=== PATIENT | female | born 1995 | race Two or more races ===

== ENCOUNTER 2019-06-06 06:47 | Day surgery (SDC) | payer MEDICAID ==
[~2019-06-06 06:47] MED LIST: Bupivacaine 0.5%/EPINEPHrine 1:200,000 50 ML MDV ONE
[2019-06-06] MEDS ORDERED: fentaNYL 250 MCG/5 ML SDV ONE (07:24)
[2019-06-06] MEDS ORDERED: Dexamethasone 4 MG/ML SDV ONE (07:25)
[2019-06-06] MEDS ORDERED: Succinylcholine 200 MG/10 ML MDV ONE (07:25)
[2019-06-06] MEDS ORDERED: Ondansetron 4 MG/2 ML SDV ONE (07:25)
[2019-06-06] MEDS ORDERED: Rocuronium 50 MG/5 ML Vial ONE (07:25)
[2019-06-06] MEDS ORDERED: Glycopyrrolate 0.2 MG/ML 5 ML MDV ONE (07:25)
[2019-06-06] MEDS ORDERED: Neostigmine Methylsulfate 1 MG/ML 5 ML Syringe ONE (07:25)
[2019-06-06] MEDS ORDERED: Propofol 200 MG/20 ML SDV ONE (07:25)
[2019-06-06] MEDS: Acetaminophen 500 MG Tab PO ONE ×2 (07:41→07:46)
[2019-06-06] MEDS: Dextrose 5%-Lactated Ringers 1,000 ML IV SCH ×3 (07:41→20:16)
[2019-06-06] MEDS ORDERED: cefOXitin 2 GM in Sodium Chloride 0.9% 50 ML IV ONE (08:15)
[2019-06-06] MEDS ORDERED: Ketamine 500 MG/5 ML MDV IV SCH (08:30)
[2019-06-06] MEDS ORDERED: Ondansetron 4 MG/2 ML SDV IVPUSH PRN (10:37)
[2019-06-06] MEDS ORDERED: HYDROmorphone 0.5 MG/0.5 ML Syringe IVPUSH PRN (10:38)
[2019-06-06] MEDS ORDERED: HYDROmorphone 1 MG/ML Syringe IV PRN (10:38)
[2019-06-06] MEDS ORDERED: Albuterol/Ipratropium 3.0-0.5 MG/3 ML Neb Soln INH PRN (10:38)
[2019-06-06] MEDS: Acetaminophen/HYDROcodone 325-5 MG Tab PO PRN ×4 (11:21→22:27)
[2019-06-06] MEDS ORDERED: Pantoprazole 40 MG Vial IV SCH (11:30)
[2019-06-06] MEDS ORDERED: Enoxaparin 40 MG/0.4 ML Syringe SUBCUT SCH (11:30)
[2019-06-06] MEDS: cefOXitin 2 GM in Sodium Chloride 0.9% 50 ML IV SCH ×2 (14:16→20:17)
[2019-06-06] MEDS: Fluticasone Propionate Nasal Spray 16 GM Bottle NASBOTH SCH (20:05)
[2019-06-06] MEDS ORDERED: Montelukast 10 MG Tab PO SCH (21:00)
[2019-06-07] MEDS: Acetaminophen/HYDROcodone 325-5 MG Tab PO PRN ×2 (02:56→08:09)
[2019-06-07] MEDS: Fluticasone Propionate Nasal Spray 16 GM Bottle NASBOTH SCH (08:10)
--- NOTE | 2019-06-07 09:40 | DISCH ---
ADMISSION DIAGNOSES: Chronic cholecystitis and cholelithiasis. DISCHARGE DIAGNOSES: Laparoscopic cholecystectomy, repair of umbilical hernia for chronic cholecystitis and cholelithiasis and umbilical hernia. HISTORY: Chanda Uribe is a 24-year-old female with right upper quadrant abdominal pain. After preoperative evaluation and discussion of possible risks and possible complications, she wished to proceed with surgical procedure. HOSPITAL COURSE: Chanda had her surgery on 06/06/2019. She had no operative complications and was able to be discharged on 06/07/2019. PHYSICAL EXAMINATION: GENERAL: Chanda is a 24-year-old female, alert and orientated. VITAL SIGNS: Height 5 feet 6.5 inches, weight is 321 pounds, BMI is 51. TPR 96.7, 66, 20, blood pressure 113/67. HEENT: Negative. NECK: Supple. HEART: Regular rate and rhythm. LUNGS: Clear. ABDOMEN: Dressings dry and intact. SANTO drain has been draining a light pink serosanguineous drainage and abdominal binder has been on. EXTREMITIES: Without peripheral edema. DISPOSITION: Discharged to home. CONDITION: Stable and improving. FOLLOWUP: Followup appointment with Leonarda Shepard PA-C, at [facility] on 06/13/2019 at 10 a.m. HOME MEDICATIONS: [place] 5/325 mg 1 tablet every 6 hours p.r.n. pain, #28. She is to resume home medication of: 1. Bentyl 20 mg oral before meals and bedtime p.r.n. 2. Vitamin D2 50,000 International Units every 7 days. 3. Zofran 4 mg every 4 hours p.r.n. nausea. DIET: Usual diet as tolerated. Drink 8 to 10 glasses of water. ACTIVITY: No lifting greater than 10 pounds for 2 weeks. Walk 6 times daily inside your home. Wear abdominal binder for 2 weeks and then as tolerated. Keep operative site clean and dry. DISCHARGE INSTRUCTIONS: Notify provider if any fever, increased pain, nausea, vomiting, and use incentive spirometer 10 times every hour while awake.
[2019-06-07] MEDS ORDERED: FLU Vacc QS2019-20(6MOS+)/PF 60 MCG/0.5 ML SYRINGE IM ONE (10:00)
--- NOTE | 2019-06-12 15:23 | OR ---
DATE OF PROCEDURE: 06/06/2019 SURGEON: William Melendez MD PREOPERATIVE DIAGNOSES: Chronic cholecystitis and cholelithiasis. POSTOPERATIVE DIAGNOSES: 1. Chronic cholecystitis and cholelithiasis. 2. Incarcerated umbilical hernia. OPERATIVE PROCEDURES: Diagnostic laparoscopy with: 1. Cholecystectomy (44524). 2. Repair of incarcerated incisional hernia (70604). ANESTHESIA: General. SECURITY DELIVERY SPECIALIST: Leonarda Shepard PA-C. INDICATIONS FOR PROCEDURE: This is a 24-year-old female presenting with episodes of right upper quadrant pain radiating to the back. She was recently seen in the [facility] Emergency Room, where an ultrasound showed cholelithiasis. The patient reports that she had discomfort on pressure on the gallbladder during the exam. Given this, she is to undergo a cholecystectomy. Potential risks of the procedure including bleeding, infection, injury to the viscera such as common bile duct, possibility of stones migrating into the common bile duct resulting in need for additional procedures for correction, and possible incomplete relief of symptoms were all reviewed, and the patient wishes to proceed. DETAILS OF PROCEDURE: The patient was taken to the operating room and placed in a supine position. After general endotracheal anesthesia was induced, the abdomen was then prepped and draped. A transverse subumbilical incision was made, and the patient was noted to have a small umbilical hernia present. Veress needle was inserted through the hernia site, and the peritoneal cavity inflated to 15 mmHg pressure with CO2. The 12 mm trocar was then placed through the hernia site, which appeared to reduce the incarcerated preperitoneal fat within it. Underlying trocar site injuries were not seen and one additional 5 mm trocar was placed in the right subcostal area and a 12-mm trocar in the epigastric area. The upper abdomen was examined. The patient was noted to have a thick-walled and somewhat mun[place]-appearing gallbladder consistent with chronic cholecystitis. This had some omental adhesions, which were taken down with Harmonic scalpel. This dissection then continued down around the gallbladder neck/cystic duct junction. Once that area was well delineated, as well as the adjacent cystic artery, both structures were divided. The cystic duct/gallbladder neck junction was somewhat thickened, and it was felt that clips might not hold well. This was, therefore, divided with a PEE escudero load. The artery was then clipped 3 times proximally and once distally and divided with Harmonic scalpel. The gallbladder was then dissected off the gallbladder bed using Harmonic scalpel and delivered from the field. It contained multiple, roughly pea-sized, stones within it, some of which were given to the patient. Area of dissection was then inspected. The patient had a fair bit of edema in the area, and given this, a Sonny-Byers drain was placed through the right lateral trocar site and positioned adjacent to the gallbladder bed. The camera port was then brought up to the epigastric site. Upon removal of the umbilical trocar site, the hernia there was then closed with passing sutures with the laparoscopic suture passing device. Four sutures of 0 Vicryl stitch were placed, closing the defect in a transversely-oriented manner. Following this, the peritoneal cavity was deflated. The fascia in the epigastric site was closed with 0 Vicryl stitch as well, and the skin with 4-0 Vicryl skin stitch. Prior to the closure, bilateral transversus abdominis plane blocks were placed, and the wounds were then also anesthetized with 0.5% Marcaine. Dressing was applied. The patient was taken to the recovery room in satisfactory condition. There were no evident complications. William Melendez MD /[id number]
== END 2019-06-07 10:35 | disposition home or self-care (01) ==
LOC: JP.SDS 06:47 → JP.MS 10:00 → JP.SDS 06-07 10:35
PROVIDERS: ATTEND Surgery
DX: K80.10 Calculus of gallbladder with chronic cholecystitis without obstruction (principal); K42.0 Umbilical hernia with obstruction, without gangrene; K66.0 Peritoneal adhesions (postprocedural) (postinfection); E66.01 Morbid (severe) obesity due to excess calories; F33.1 Major depressive disorder, recurrent, moderate; F41.1 Generalized anxiety disorder; Z68.43 Body mass index [BMI] 50.0-59.9, adult
CPT/HCPCS: 36415; 80053; 81025; 82247; 84075; 85025; 85027; A9270-GY; C9113; J0171; J0330; J0694; J1100; J1170; J1650; J2405; J2704; J2710; J2795; J3010; J3490; J7050; J7121